=== PATIENT | female | born 1970 | race Caucasian/White ===

== ENCOUNTER 2024-04-06 13:46 | Emergency (ER) | payer OTHER ==
[~2024-04-06] VITALS: Ht 157.5 cm; Wt 95.0 kg
[2024-04-06 13:48] VITALS: O2SAT 100
[2024-04-06 14:15] LABS: BASOPHILS % 0.2 % (0.0-2.0); EOSINOPHILS % 0.5 % (0.0-5.0); HEMATOCRIT. 41.2 % (36.0-48.0); HEMOGLOBIN. 14.2 g/dL (12.0-16.0); LYMPHOCYTES % 43.4 % (20.0-50.0); MEAN CORPUSCULAR HEMOGLOBIN 29.4 pg (28.0-32.0); MEAN CORPUSCULAR HGB CONC 34.5 g/dL (31.0-37.0); MEAN CORPUSCULAR VOLUME 85.2 fL (81.0-99.0); MEAN PLATELET VOLUME 7.8 fl (7.4-10.4); MONOCYTES % 2.2 % (2.0-8.0); NEUTROPHILS % 53.7 % (40.0-76.0); PLATELET 262 x1000/uL (130-400); RED BLOOD CELL COUNT 4.83 mill/uL (4.2-5.4); WHITE BLOOD COUNT 5.3 x1000/uL (4.5-11.0)
[2024-04-06 14:22] LABS: CHLORIDE 106 mEq/L (98-107); POTASSIUM 3.4 mEq/L (3.5-5.1); SODIUM 139 mEq/L (136-145)
[2024-04-06 14:23] LABS: CARBON DIOXIDE 27 mEq/L (21-32); INR 0.9; PROTHROMBIN TIME 10.5 sec (9.6-11.0)
[2024-04-06 14:24] LABS: CALCIUM 9.9 mg/dL (8.7-10.4)
[2024-04-06 14:28] LABS: CREATININE 1.1 mg/dL (0.6-1.0); GLUCOSE 184 mg/dL (70-105); UREA NITROGEN BLOOD 13 mg/dL (9-23)
[2024-04-06 14:29] LABS: TROPONIN I HIGH SENSITIVITY 10 ng/L (3.0-34)
[2024-04-06 16:01] LABS: ALANINE AMINOTRANSFERASE 32 IU/L (10-49); ALBUMIN 4.3 g/dL (3.2-4.8); ASPARTATE AMINOTRANSFERASE 30 IU/L (<34); BILIRUBIN DIRECT 0.1 mg/dL (<=3.0); BILIRUBIN TOTAL 0.5 mg/dL (0.1-1.0); PROTEIN TOTAL 8.2 g/dL (6.0-8.3)
[2024-04-06 16:43] LABS: CLARITY URINE CLEAR (CLEAR); COLOR URINE YELLOW (YELLOW); GLUCOSE URINE NEGATIVE (NEGATIVE); KETONES URINE NEGATIVE (NEGATIVE); LEUKOCYTE ESTERASE URINE NEGATIVE (NEGATIVE); NITRITE URINE NEGATIVE (NEGATIVE); OCCULT BLOOD URINE NEGATIVE (NEGATIVE); PH URINE 6.5 (4.5-8.0); PROTEIN URINE NEGATIVE (NEGATIVE); UROBILINOGEN URINE 0.2 E.U./dL (0.2-1.0)
[2024-04-06] MEDS: POTASSIUM CHLORIDE 20MEQ TABLET SR PO ONE (17:09)
[2024-04-06] MEDS ORDERED: CARVEDILOL 12.5MG TABLET PO ONE (18:30)
[2024-04-06] MEDS: LABETALOL 5MG/ML 4ML INJ IV ONE (18:31)
[2024-04-06 18:43] VITALS: BP 187/102; RESP 18; TEMP 36.72516; O2SAT 100
[2024-04-06 18:44] VITALS: PULSE 77
[2024-04-06] MEDS: CARVEDILOL 6.25 MG TABLET PO NR (18:44)
== END 2024-04-06 18:20 | disposition home or self-care (01) ==
LOC: ER 13:46
DX: I16.0 Hypertensive urgency (principal); I10 Essential (primary) hypertension; R53.1 Weakness; R42 Dizziness and giddiness; Z20.822 Contact with and (suspected) exposure to COVID-19
CPT/HCPCS: 80076; 80048; 81003; 83880; 83690; 85025; 85610; 84484; 87804 ×2; 36415; 71045; 70450; 93005; 96374; 99285; 87426; J3490; Z7610 ×2